=== PATIENT | male | born 1970 | race Caucasian/White ===

== ENCOUNTER → 2021-03-14 13:44 | Outpatient (CLI) | payer BC, SELFPAY ==
--- NOTE | 2021-03-14 | DI.RAD.S_ITS ---
PROCEDURE: XR PELVIS 1-2V INDICATIONS: Pain in left hip TECHNIQUE: 2 view(s) of the pelvis acquired. COMPARISON: None. FINDINGS: Bones: No fractures or dislocations. No suspicious bony lesions. Hip joints are well maintained. Degenerative disc and facet disease involves the inferior lumbar spine. Soft tissues: Visualized bowel gas pattern is normal. No suspicious soft tissue calcifications. IMPRESSION: 1. Normal appearance of the hip joints bilaterally. 2. Degenerative disc and facet disease involving the lower lumbar spine. Dictated by: Yao Franklin [facility] Interpreted: Damon Shipman MD on 03/14/2021 at 15:07 Transcribed by: MONIQUE on 03/14/2021 at 15:09 Approved by: Damon Shipman M.D. on 03/14/2021 at 17:09
== END ==
PROVIDERS: PCP Nurse Practitioner Family; Referring Provider Nurse Practitioner Family; Visit Provider Nurse Practitioner Family
DX: M25.552 Pain in left hip (principal); M51.36 Other intervertebral disc degeneration, lumbar region
CPT/HCPCS: 72170

== ENCOUNTER → 2021-05-11 11:48 | Outpatient (CLI) | payer BC, SELFPAY ==
--- NOTE | 2021-05-11 | DI.MRI.S_ITS ---
PROCEDURE: MR LUMBAR SPINE WO CON INDICATIONS: Other low back pain TECHNIQUE: Noncontrast sagittal T1 spin echo and T2 fast echo, sagittal STIR, and T2 fast spin echo through the lumbar spine. In cases with scoliosis, additional coronal T2 fast spin echo may be performed. COMPARISON: None. FINDINGS: Image quality: This examination is limited by involuntary motion artifact. Alignment and Curvature: There is minimal retrolisthesis seen at L2-L3, L3-L4, L4-L5, and L5-S1. Bone Marrow: Marrow is of normal overall signal. No acute vertebral body compression fractures. Spinal Cord: Conus medullaris terminates at the L1 level. Visualized cord demonstrates normal signal and size. Paraspinous Soft Tissues: No paravertebral masses. T12-L1: Normal appearance. L1-L2: Mild loss of disc height is seen. Loss of disc signal is seen. Minimal to mild disc bulge is seen. No significant neural foraminal narrowing is seen. Minimal central canal narrowing is seen. L2-L3: Moderate loss of disc height is seen. Loss of disc signal is seen. Moderate generalized disc bulge is seen. There is a superimposed central disc protrusion. There is moderate right-sided and mild left-sided neural foraminal narrowing seen. Mild to moderate central canal narrowing is seen. L3-L4: The disc height is well-preserved. Loss of disc signal is seen at this level. Moderate generalized disc bulge is seen. There is a superimposed central disc protrusion. Moderate facet joint hypertrophy is seen. Moderate bilateral neural foraminal narrowing can be seen, right worse than left. Moderate central canal narrowing is seen. L4-L5: At least moderate loss of disc height and disc signal can be seen. Reactive marrow endplate changes are seen, which are hyperintense on T1-weighted and T2-weighted imaging and most consistent with fatty metaplasia (Modic type II changes). Moderate disc bulge is seen, which is eccentric to the left. There is a superimposed central disc protrusion. Moderate facet joint hypertrophy is seen. There is moderate to severe bilateral neural foraminal narrowing seen, left worse than right. There is a degree of compression seen upon the exiting nerve roots. Mild central canal narrowing is seen. L5-S1: The disc height is well-preserved. Loss of disc signal is seen at this level. Mild to moderate disc bulge is seen, with a mild central disc protrusion. There is mild right-sided and [id number] left-sided facet hypertrophy seen. Moderate to severe bilateral neural foraminal narrowing is seen, left worse than right. There is a degree of compression seen upon the exiting nerve roots. No central canal narrowing is seen. IMPRESSION: Multiple levels of lumbar spine degenerative change are seen, which are worst inferiorly. At L4-L5 and L5-S1, there is moderate to severe bilateral neural foraminal narrowing seen, with associated exiting nerve root compression. Dictated by: Aryan Moore M.D. on 05/11/2021 at 11:55 Approved by: Aryan Moore M.D. on 05/11/2021 at 11:58
== END ==
PROVIDERS: PCP Nurse Practitioner Family; Referring Provider Nurse Practitioner Family; Visit Provider Nurse Practitioner Family
DX: M47.26 Other spondylosis with radiculopathy, lumbar region (principal); M47.27 Other spondylosis with radiculopathy, lumbosacral region; M48.061 Spinal stenosis, lumbar region without neurogenic claudication; M48.07 Spinal stenosis, lumbosacral region; M54.59 Other low back pain; R20.0 Anesthesia of skin
CPT/HCPCS: 72148

== ENCOUNTER → 2023-11-16 09:03 | Outpatient (CLI) | payer BC, SELFPAY ==
--- NOTE | 2023-11-16 09:04 | DI.MRI.S_ITS ---
PROCEDURE: MR LUMBAR SPINE WO CON INDICATIONS: LUMBAR RADICULOPATHY,HX LAMINECTOMY,PARESTHESIA SK TECHNIQUE: Noncontrast sagittal T1 spin echo and T2 fast echo, sagittal STIR, and T2 fast spin echo through the lumbar spine. In cases with scoliosis, additional coronal T2 fast spin echo may be performed. COMPARISON: [facility], MR, MR LUMBAR SPINE WO CON, 05/11/2021, 11:59. FINDINGS: Image quality: Excellent. Alignment and Curvature: There is minimal leftward curvature with apex at L2-3. There is trace retrolisthesis of L2-L3, on L4 on, S1. Bone Marrow: Marrow is of normal overall signal. Schmorl's node is present the superior endplate L2 progressive compared to prior exam. No acute vertebral body compression fractures. Spinal Cord: Conus medullaris terminates at the T12-L1 level. Visualized cord demonstrates normal signal and size. Paraspinous Soft Tissues: No paravertebral masses. Discs: Overall [id number] disc desiccation most severe at L4-5. T12-L1: No disc bulge, spinal stenosis or foraminal narrowing. L1-L2: Minimal disc bulge without spinal stenosis or foraminal narrowing. Facet and ligamentum flavum hypertrophy with epidural lipomatosis. Overall appearance is stable. L2-L3: Mild disc with minimal narrowing. [id number] bilateral foraminal narrowing, right greater than left with facet and ligamentum flavum hypertrophy as well as epidural lipomatosis. No significant interval progression. L3-L4: Mild disc bulge with moderate spinal stenosis. Moderate bilateral foraminal narrowing with facet and ligamentum flavum hypertrophy as well as epidural lipomatosis. No appreciable interval progression. L4-L5: Mild disc bulge with mild spinal stenosis. Moderate to severe bilateral foraminal narrowing with facet and ligamentum flavum hypertrophy. Overall, no significant interval progression. L5-S1: Mild disc bulge without spinal stenosis. Severe bilateral foraminal narrowing, left greater than right with facet and ligamentum flavum hypertrophy. Interval progression. IMPRESSION: Multilevel degenerative changes with severe foraminal narrowing at L5-S1, slightly progressive. Multilevel spinal stenosis most severe at L3-4 secondary to disc bulge with contributing effect of facet/ligamentum flavum arthropathy. Dictated by: Nell Franklin M.D. on 11/16/2023 at 16:37 Approved by: Nell Franklin M.D. on 11/16/2023 at 16:44
== END ==
PROVIDERS: PCP Nurse Practitioner Family; Referring Provider Physician Assistant; Visit Provider Physician Assistant
DX: M47.26 Other spondylosis with radiculopathy, lumbar region (principal); M47.27 Other spondylosis with radiculopathy, lumbosacral region; M48.061 Spinal stenosis, lumbar region without neurogenic claudication; M48.07 Spinal stenosis, lumbosacral region; M51.16 Intervertebral disc disorders with radiculopathy, lumbar region; M51.17 Intervertebral disc disorders with radiculopathy, lumbosacral region; R20.2 Paresthesia of skin; Z98.890 Other specified postprocedural states
CPT/HCPCS: 72148